=== PATIENT | female | born 1970 | race Caucasian/White ===

== ENCOUNTER → 2024-01-20 06:52 | Outpatient (REF) | payer OTHER, SELFPAY | LOC: WDC 06:52 | PROVIDERS: ATTENDING PHYSICIAN Obstetrics & Gynecology Gynecology; FAMILY PHYSICIAN Family Medicine | DX: Z12.31 Encounter for screening mammogram for malignant neoplasm of breast (principal) | CPT/HCPCS: 77063; 77067 ==

== ENCOUNTER → 2024-09-23 17:25 | Outpatient (REF) | payer OTHER, SELFPAY | LOC: MRI 3T 17:25 | PROVIDERS: ATTENDING PHYSICIAN Otolaryngology; FAMILY PHYSICIAN Family Medicine | DX: D33.3 Benign neoplasm of cranial nerves (principal) | CPT/HCPCS: 70553; A9575 ==

== ENCOUNTER → 2025-01-25 07:50 | Outpatient (REF) | payer OTHER, SELFPAY | LOC: WDC 07:50 | PROVIDERS: ATTENDING PHYSICIAN Obstetrics & Gynecology Gynecology; FAMILY PHYSICIAN Family Medicine | DX: Z12.31 Encounter for screening mammogram for malignant neoplasm of breast (principal) | CPT/HCPCS: 77063; 77067 ==